=== PATIENT | male | born 1950 | race Caucasian/White ===

== ENCOUNTER → 2021-08-28 | Day surgery (SDC) | payer MEDICARE, OTHER ==
[~2021-08-28] MED LIST: ADULT LOW DOSE81 MG PO; ADVIL LIQUI-GE200 MG PO; ATORVASTATIN CA80 MG PO; DIGESTIVE ENZY1 EAC1 PO; HYDROCODON-ACE1 EAC7 PO; LISINOPRIL-HCT1 EAC2 PO; OMEPRAZOLE40 MG PO; PROBIOTIC1 EAC7 PO; TOPROL XL50 MG
--- NOTE | ~2021-08-28 | OP ---
[facility] [address] [place] [address] OPERATIVE REPORT Name: LOBO BARRETO Room: [facility]#: [id number] Admission: 08/28/21 Attend Phys: Ric Ruff Discharge: Date of : 46 Report #: [id number] THIS REPORT FOR: cc: Physician not on staff Physician not on staff Ric Ruff MD ~ DATE OF SURGERY: 08/28/2021 PREOPERATIVE DIAGNOSIS: Left inguinal hernia. POSTOPERATIVE DIAGNOSIS: Left inguinal hernia. OPERATION: Laparoscopic repair of left inguinal hernia with mesh. SURGEON: Ric Ruff MD. ANESTHESIA: General. ESTIMATED BLOOD LOSS: Minimal. SPECIMENS: None. DESCRIPTION OF PROCEDURE: After informed consent was obtained, the patient was brought to the operating room and placed supine. SCDs were placed and working, preoperative antibiotics were administered, general anesthesia was induced. The abdomen was prepped and draped in the usual sterile fashion. The patient had voided prior to coming back to the OR. A 10 mm incision was made below the umbilicus. Fascia was incised and a trocar was placed. Pneumoperitoneum was established. Right and left lower quadrant 5 mm ports were placed. These were done under direct vision. The patient was placed in the Trendelenburg position. He had a significantly dilated sigmoid colon. Trendelenburg position helped to move this superiorly. The peritoneum at the left ASIS was scored. Peritoneum was incised and reflected inferiorly. The cord structures were identified. The pubic bone was identified. He had a fairly large indirect hernia sac that was fully reduced. I identified the cord structures and the vas deferens. A large Bard 3DMax mesh was inserted. It was placed into the preperitoneal space. It was tacked to Gilles's ligament with 2 absorbable tacks. I then reapproximated the peritoneum with a running 2-0 V-Loc suture. The ports were then removed under direct vision. The fascia at the umbilicus was closed with a [id number] 0 Vicryl. Skin was closed with 4-0 Monocryl. Incisions were dressed with Steri-Strips. COMPLICATIONS: [place] [address] OPERATIVE REPORT Name: LOBO BARRETO Elaina Room: [facility]#: [id number] Admission: 08/28/21 Attend Phys: Ric Ruff Discharge: Date of : 46 Report #: [id number] DISPOSITION: The patient was taken to recovery in satisfactory condition. By: [id number] Ruff MD /nt
[2021-08-28 07:36] LABS: HEMATOCRIT 43.1 % (42.0-52.0); HEMOGLOBIN 14.5 gm/dL (14.0-18.0); MCH 31.2 pg (26.0-34.0); MCHC 33.6 g/dL (28.0-37.0); MCV 92.8 fL (80.0-100.0); MPV 7.8 fl. (7.2-11.1); RBC 4.65 mil/uL (4.50-6.00); RDW-CV 13.7 % (10.5-14.5); WBC 5.7 thou/uL (4.0-11.0)
[2021-08-28 08:02] LABS: CREATININE 1.2 mg/dL (0.6-1.3); POTASSIUM 4.3 mmol/L (3.5-5.1)
--- NOTE | 2021-08-28 10:18 | EKG ---
[place] [address] ELECTROCARDIOGRAM REPORT Name: LOBO BARRETO Room: [facility]#: [id number] Admission: 08/28/21 Attend Phys: Ric Ba Discharge: Date of : 46 Date of Service: 08/28/21 0742 Report #: [id number] THIS REPORT FOR: //name// [facility] [place] Test Date: 2021-08-28 Test Time: 07:42:38 Pat Name: LOBO BARRETO Department: Room: Gender: [employer] Plumber: Elvia ROY RN : 1950 Requested By: Ric Ruff Order Number: [id number] Julius MD: Jose Cormier Measurements Intervals [place] Rate: 56 P: 3 NV: 149 QRS: -92 QRSD: 164 T: 12 QT: 486 QTc: 470 Interpretive Statements Sinus rhythm Probable left atrial enlargement RBBB and LAFB No previous ECG available for comparison Electronically Signed On 08-28-2021 10:18:49 [employer] by Jose Cormier [email or web address] <ELECTRONICALLY SIGNED> By: Jose Cormier MD, [facility] 08/28/21 1018 0742 0742 Jose Cormier MD, [facility] /EPI
== END | disposition home or self-care (01) ==
LOC: M.SUR 05:50
PROVIDERS: ATTEND Surgery
DX: K40.90 Unilateral inguinal hernia, without obstruction or gangrene, not specified as recurrent (principal); R10.9 Unspecified abdominal pain; Z98.890 Other specified postprocedural states; Z79.899 Other long term (current) drug therapy; Z20.822 Contact with and (suspected) exposure to COVID-19